=== PATIENT | male | born 1975 | race Caucasian/White ===

== ENCOUNTER 2018-12-10 14:42 | Emergency (ER) | payer BC ==
[~2018-12-10] VITALS: Ht 177.8 cm; Wt 102.0 kg
[2018-12-10 14:48] VITALS: BP 153/103
--- NOTE | 2018-12-10 15:19 | NUR ---
Per Provider, accucheck cancelled.
[2018-12-10] MEDS ORDERED: ONDA4TAB6 PO (15:22)
== END 2018-12-10 15:28 | disposition home or self-care (01) ==
LOC: ER 14:43
DX: R11.2 Nausea with vomiting, unspecified (principal); H92.02 Otalgia, left ear; Z91.030 Bee allergy status
CPT/HCPCS: 93005; 99283

== ENCOUNTER 2018-12-19 14:58 | Emergency (ER) | payer BC ==
[~2018-12-19] VITALS: Ht 177.8 cm; Wt 106.8 kg
[~2018-12-19 14:58] MED LIST: ONDA4TAB6 PO
[2018-12-19 15:02] VITALS: BP 126/88
[2018-12-19] MEDS ORDERED: LIDOcaine 1% w/epiNEPHrine 1:200,000 30ml vial IM ONE (15:30)
--- NOTE | 2018-12-19 15:33 | NUR ---
AT ABOUT 1430 PATIENT CUT HIS MIDDLE FINGER ON AN AIR CONDITIONING FAN BLADE ABOUT 7 CM BY 1 CM LACERATION WHICH IS ACTIVELY BLEEDING
--- NOTE | 2018-12-19 16:17 | NUR ---
AL BOYER NOTIFIED THAT AFTER IRRIGATION BY COURTNEY RITCHIE PATIENT'S MIDDLE FINGER LACERATION IS BLEEDING PROFUSELY: AT FIRST COBAN APPLIED AND PATIENT CONTINUED TO BLEED PROFUSELY FOLDED 4X4 GAUZE APPLIED ALONG LACERATION AND PRESSURE DRESSING WITH 2 INCH FOAM TAPE APPLIED
== END 2018-12-19 17:19 | disposition home or self-care (01) ==
LOC: ER 14:58
DX: S61.212A Laceration without foreign body of right middle finger without damage to nail, initial encounter (principal); Z79.899 Other long term (current) drug therapy; W26.8XXA Contact with other sharp object(s), not elsewhere classified, initial encounter; Y93.89 Activity, other specified; Y92.89 Other specified places as the place of occurrence of the external cause; Y99.8 Other external cause status
CPT/HCPCS: 12004; 99283

== ENCOUNTER 2021-12-12 09:05 | Emergency (ER) | payer BC ==
[~2021-12-12] VITALS: Ht 175.3 cm; Wt 128.0 kg
[2021-12-12 10:13] VITALS: BP 164/109
[2021-12-12] MEDS ORDERED: morphine 4 MG/ML inj SYRINge IM ONE (11:50)
[2021-12-12] MEDS ORDERED: predniSONE 20 mg tablet PO ONE (12:05)
[2021-12-12] MEDS ORDERED: OXYC-145 PO (14:45)
[2021-12-12] MEDS ORDERED: MELO-102 PO (14:48)
[2021-12-12] MEDS ORDERED: PRED20TA PO (14:49)
== END 2021-12-12 15:18 | disposition home or self-care (01) ==
LOC: ER 09:06
DX: M54.18 Radiculopathy, sacral and sacrococcygeal region (principal)
CPT/HCPCS: 72131; 96372; 99284; J2270; J7512; 99283